=== PATIENT | female | born 1975 | race Caucasian/White ===

== ENCOUNTER 2021-12-18 13:49 | Outpatient (CLI) | payer OTHER, SELFPAY | END 2021-12-18 13:50 | disposition home or self-care (01) | LOC: ANHAUDIO 13:50 | PROVIDERS: PCP Family Medicine; Visit Provider Otolaryngology | DX: H69.81 Other specified disorders of Eustachian tube, right ear (principal); H90.3 Sensorineural hearing loss, bilateral | CPT/HCPCS: 92557; 92567 ==

== ENCOUNTER 2025-05-28 12:49 | Emergency (ER) | payer BC, SELFPAY ==
[2025-05-28 12:49] VITALS: BP 163/84; PULSE 92; RESP 16; TEMP 35.9; O2SAT 97
--- OUTSIDE RECORDS SUMMARY | 2025-05-28 12:59 | XMS_ITS | Clinical Summary ---
Author Organization [facility] Address Formerly [facility] [place] [address] Care Team Providers Care Corporate Development Manager Name Role Phone Avelino Cuenca MD Primary Care Provider Allergies No known active allergies Social History Tobacco Use Types Packs/Day Years Used Date Smoking Tobacco: Never Assessed Comments Unknown Sex and Gender Information Value Date Recorded Sex Assigned at Not on file Legal Sex Female 7:28 PM CDT Gender Identity Not on file Sexual Orientation Not on file Last Filed Vital Signs Vital Sign Reading Time Taken Comments Blood Pressure 123/72 2018 10:14 AM COMPTOMETER OPERATOR Pulse 81 2018 10:14 AM COMPTOMETER OPERATOR Temperature - - Respiratory Rate - - Oxygen Saturation - - Inhaled Oxygen Concentration - - Weight 66.7 kg (147 lb) 2018 10:14 AM COMPTOMETER OPERATOR Height 149.9 cm (4' 11) 2018 10:14 AM COMPTOMETER OPERATOR Body Mass Index 29.69 2018 10:14 AM COMPTOMETER OPERATOR Plan of Treatment Health Maintenance Due Date Last Done Comments Cervical Cancer Screening Pa p Smear (Age 30 to 64) Every 3 Years 1973 Colorectal Cancer Screening Colonoscopy (10 Years) 1973 Annual Physical 1976 Hepatitis C 1991 DTaP, Tdap and Td Vaccines ( 1 - Tdap) 1992 Hepatitis B Vaccines (1 of 3 - 19+ 3-dose series) 1992 Cervical Cancer Screening Pa p with HPV Testing (Age 30 to 64) Every 5 Years 2003 Cervical Cancer Screening wi th HPV 2003 Mammogram Screening 2013 Pneumococcal Vaccine: 50+ Years (1 of 1 - PCV) 2023 Zoster Vaccines (1 of 2) 2023 COVID-19 Vaccine (3 - 2024-2 5 season) 2024 06/09/2021, 05/19/2021 Meningococcal B Vaccine Aged Out No l onger eligible based on patient's age to complete this topic Meningococcal Vaccine Aged Out No sirena pooja eligible based on patient's age to complete this topic RSV Immunizations Under 20 Months Aged Out No longer eligible b ased on patient's age to complete this topic Insurance [facility] Care Teams Corporate Development Manager Relationship Specialty Start Date End Date Avelino Cuenca MD [address] [place] [phone] PCP - General FAMILY PRACTICE 06/19/22
--- NOTE | 2025-05-28 13:00 | ED_ITS ---
HPI - Wound/Laceration General Chief Complaint: Wound/Laceration Stated Complaint: laceration to left forearm Time Seen by Provider: 05/28/25 12:59 Source: patient Mode of arrival: ambulatory Limitations: no limitations History of Present Illness HPI narrative: 50-year-old female with a history of COPD, dyslipidemia presents to the ED with -- left forearm 2 cm deep laceration. She accidentally cut herself with a razor knife. Profuse bleeding which has stopped. Onset (ago): hour(s) ( 4 hours ago) Location: other ( left forearm) Extremity Location: Left: forearm Body four view annotation: 2 1. left forearm [address]: work Patient tetanus UTD: No Context: accidental Associated symptoms: none Related Data Allergies Allergy/AdvReac Type Severity Reaction Status Date / Time codeine AdvReac Intermediate NAUSEA Verified 05/28/25 12:56 Review of Systems 2 Review of Systems: All systems reviewed & are unremarkable except as noted in HPI and below PMFSH Past Medical History Medical History (Updated 05/28/25 @ 13:29 by Valdemar Johnson MD) COPD (chronic obstructive pulmonary disease) with emphysema Dyslipidemia Social History Social History Smoking status: Never smoker Alcohol intake: never Substance use: never Exam 2 Narrative: vitals are stable. Const: General: no acute distress Orientation/consciousness: patient oriented x3 Limitations: no limitations HENMT: Ears: external ears normal Face/Nose/Sinus: Normal external nose present Face and sinus: normal facial exam Mouth: Yes Normal oral and palatal mucosa present Throat: posterior oropharynx normal Eyes: Conjunctivae: conjunctivae normal Pupils: Equal, round and reactive pupils present EOM: EOMs intact bilaterally Direct Ophthalmoscopy: no photophobia Neck: Neck: normal visual inspection, no lymphadenopathy and no meningeal signs Chest: Chest palpation & inspection: normal inspection of the chest Resp: Effort & Inspection: normal respiratory effort Auscultation: clear to auscultation bilaterally Cardio: Rate: regular rate Rhythm: regular rhythm GI: GI Palp: Yes Soft to palpation Auscultation: normal bowel sounds O ther: Tenderness/ rigidity /rebound. Back/Spine/Pelvis: Back: no CVA tenderness Skin: General skin exam: normal color Other: 2 cm full-thickness laceration over the left anterior forearm. Swelling around the laceration. Neuro: General: patient oriented x3, moves all extremities, no meningeal signs, no focal motor deficits and CN's II-XI intact bilaterally Speech: n ormal speech Extrem: General: normal to inspection and no clubbing, cyanosis or edema O ther: Left forearm laceration. distal neurovascular bundle is intact. Psych: Mental Status: mental status grossly normal Affect: normal affect Attitude: cooperative Course Course Emergency Course: forearm laceration-- Wound sutured with 4-0 nylon. Vital Signs Vital signs: Vital Signs Temperature 35.9 C L 05/28/25 12:49 Pulse Rate 92 05/28/25 12:49 Respiratory Rate 16 05/28/25 12:49 Blood Pressure 163/84 H 05/28/25 12:49 Pulse Oximetry 97 05/28/25 12:49 Oxygen Delivery Room Air 05/28/25 12:49 Temperature 35.9 C L 05/28/25 12:49 Pulse Rate 92 05/28/25 12:49 Respiratory Rate 16 05/28/25 12:49 Blood Pressure 163/84 H 05/28/25 12:49 Pulse Oximetry 97 05/28/25 12:49 Oxygen Delivery Room Air 05/28/25 12:49 Procedures Laceration Laceration 1: Date: 05/28/25 Time: 13:28 Site: upper extremity Side (If applicable): left Size (cm): 2 Description: linear Depth: simple, single layer Local Anesthetic: lidocaine 1% Amount of anesthesia used (mL): 3 Pre-repair: wound explored ====== Skin Level ====== Skin layer closed with: nylon Size (cm): 4-0 Number of sutures: 4 Technique: running ====== Subcutaneous Layer ====== ====== Muscle Layer ====== ====== Tendon Layer ====== MDM - Wound/Laceration MDM Narrative Medical decision making narrative: Forearm laceration Differential Diagnosis Differential diagnosis: Likely abrasion Discharge Plan Discharge Clinical Impression: Laceration Patient Disposition: Home Condition: Stable Instructions: Antibiotic Form, Laceration (ED) Additional Instructions: monitor for infection suture removal in 10 days Patient Language: Swedish Follow-up/Referrals: Bang,MD Avelino [Primary Care Provider] - Time of Disposition: 13:29
--- OUTSIDE RECORDS SUMMARY | 2025-05-28 13:29 | XMS_ITS | Clinical Summary ---
Author Organization [facility] Address [facility] [place] [address] Care Team Providers Care Third Helper Name Role Phone Avelino Cuenca MD Primary [...] Comments Blood Pressure 123/72 2018 10:14 AM EMPLOYEE ADVISER Pulse 81 2018 10:14 AM EMPLOYEE ADVISER Temperature - - Respiratory Rate - - Oxygen Saturation - - Inhaled Oxygen Concentration - - Weight 66.7 kg (147 lb) 2018 10:14 AM EMPLOYEE ADVISER Height 149.9 cm (4' 11) 2018 10:14 AM EMPLOYEE ADVISER Body Mass Index 29.69 2018 10:14 AM EMPLOYEE ADVISER Plan of Treatment Health Maintenance Due Date [...] patient's age to complete this topic Insurance [facility] Care Teams Third Helper Relationship Specialty Start Date End Date Avelino Cuenca MD [address] [place] [phone] PCP - General FAMILY PRACTICE 06/19/22
[2025-05-28] MEDS: TETANUS,DIPHTHERIA,AC PERTUSSIS ADULT 0.5 ML (ADACEL) IM (13:32)
[2025-05-28 13:48] VITALS: BP 154/82; PULSE 85; RESP 16; TEMP 36.6; O2SAT 98
== END 2025-05-28 13:48 | disposition home or self-care (01) ==
PROVIDERS: Emergency Provider Internal Medicine Critical Care Medicine; PCP Family Medicine
DX: S51.812A Laceration without foreign body of left forearm, initial encounter (principal); J44.9 Chronic obstructive pulmonary disease, unspecified; W26.0XXA Contact with knife, initial encounter; Z23 Encounter for immunization
CPT/HCPCS: 12001; 90471; 90715; 99283